=== PATIENT | male | born 1965 | race Caucasian/White ===

== ENCOUNTER 2017-11-01 11:17 | Inpatient (IN) | payer OTHER ==
[2017-11-01 13:39] VITALS: BMI 30.4
--- NOTE | 2017-11-01 16:43 | HP ---
COWS - Scale Resting Pulse: 2= [place] 101-120 Sweatin=Flushed/Facial Moisture Restless Observation: 1= Difficult to Sit Still Pupil Size: 0= Normal to Room Light Bone or Joint Aches: 1= Mild Discomfort Runny Nose/ Eye Tearin= None GI Upset > 30mins: 1= Stomach Cramp Tremor Observation: 1= Tremor Surveyor, Not Seen Yawning Observation: 1= 1-2x During Session Anxiety or Irritability: 2=Irritable/Anxious Goose Flesh Skin: 3=Piloerection (f) COWS Score: 14 Admission [facility] Chief Complaint: withdrawal symptoms Allergies/Adverse Reactions: Allergies Allergy/AdvReac Type Severity Reaction Status Date / Time No Known Allergies Allergy Verified 11/01/17 15:24 History of Present Illness: Patient is a 52 yo male with hx of heroin dependence is here seeking detox. PMHX :GERD, HTN, DM II on oral meds, chronic back pain, anxiety, depression, insomnia. Denies suicidal / homicidal ideation or suicide attempt. Reports left the Wellness program [facility] two months ago, did not like the way that methadone made him feel and started loosing his teeth. Reports currently under probation due to a MVA while under the influence of heroin use. Longest period of sobriety 2 years [id number], reports relapse after the of his mother. Denies hx of seizure or overdose. Reference #: [id number] Others' Prescriptions Patient Name: Isauro Tello Date: 1965 Address: [address] [place] [address] Sex: Male Rx Written Rx Dispensed Drug Quantity Days Supply Prescriber Name 10/21/2017 10/21/2017 alprazolam 2 mg tablet 90 30 Devyn Galvin MD 09/19/2017 09/21/2017 alprazolam 2 mg tablet 90 30 Devyn Galvin MD 08/22/2017 08/23/2017 alprazolam 2 mg tablet 90 30 Devyn Galvin MD 07/24/2017 07/25/2017 alprazolam 2 mg tablet 90 30 Devyn Galvin MD 06/27/2017 06/28/2017 alprazolam 2 mg tablet 90 30 Devyn Galvin MD 05/30/2017 05/31/2017 alprazolam 2 mg tablet 90 30 Devyn Galvin MD 05/02/2017 05/03/2017 alprazolam 2 mg tablet 90 30 Devyn Galvin MD 04/04/2017 04/05/2017 alprazolam 2 mg tablet 90 30 Devyn Galvin MD 03/07/2017 03/07/2017 alprazolam 2 mg tablet 90 30 Devyn Galvin MD 02/05/2017 02/05/2017 alprazolam 2 mg tablet 90 30 Devyn Galvin MD Exam Limitations: No Limitations - Ebola screening Have you traveled outside of the country in the last 21 days: No (N) Have you had contact with anyone from an Ebola affected area: No Have you been sick,other than usual withdrawal symptoms: No Do you have a fever: No - Review of Systems Constitutional: Chills, Diaphoresis, Changes in sleep, Unintentional Wgt. Loss ( 20 lbs over the past month) EENT: reports: Dental Problems ("loosing teeth recently after being on methadone ") Respiratory: reports: No Symptoms reported Cardiac: reports: No Symptoms Reported GI: reports: Nausea, Poor Fluid Intake, Indigestion, Abdominal cramping : reports: No Symptoms Reported Musculoskeletal: reports: Other (hx brojen bellamy and right wrist) Neuro: reports: Tremors, Weakness, Dizziness (when getting up) Hematology: reports: No Symptoms Reported Psychiatric: reports: Orientated x3, Anxious Other Systems: Reviewed and Negative Patient History - Patient Medical History Hx Asthma: No Hx Chronic Obstructive Pulmonary Disease (COPD): No Hx Cancer: No Hx Cardiac Disorders: No Hx Congestive Heart Failure: No Hx Hypertension: Yes Hx Hypercholesterolemia: No Hx Pacemaker: No HX Cerebrovascular Accident: No Hx Seizures: No Hx Dementia: No Hx Diabetes: Yes Hx Gastrointestinal Disorders: Yes (GERD, hx of GI bleed 2015) Hx Liver Disease: No Hx Genitourinary Disorders: No Hx Sexually Transmitted Disorders: No Hx Renal Disease (ESRD): No Hx Thyroid Disease: No Hx Human Immunodeficiency Virus (HIV): No (declines testing) Hx Hepatitis C: No Hx Depression: Yes Hx Suicide Attempt: No Hx Bipolar Disorder: No Hx Schizophrenia: No - Patient Surgical History Past Surgical History: No Hx Neurologic Surgery: No Hx Cataract Extraction: No Hx Cardiac Surgery: No Hx Lung Surgery: No Hx Breast Surgery: No Hx Breast Biopsy: No Hx Abdominal Surgery: No Hx Appendectomy: No Hx Cholecystectomy: No Hx Genitourinary Surgery: No Hx Section: No Hx Orthopedic Surgery: No Other Surgical History: RIGHT LOWER LEG SURGERY FEMUR Anesthesia Reaction: No - PPD History Previous Implant?: No Documented Results: Negative w/o proof Implanted On Prior [facility] Admission?: No Results: hx +PPD PPD to be Administered?: No - Reproductive History Patient is a Female of Child Bearing Age (11 -55 yrs old): No - Smoking Cessation Smoking history: Current every day smoker Have you smoked in the past 12 months: Yes Aproximately how many cigarettes per day: 10 Hx Chewing Tobacco Use: No Initiated information on smoking cessation: Yes 'Breaking Loose' booklet given: 11/01/17 - Substance & Tx. History Hx Alcohol Use: Yes Hx Substance Use: Yes Substance Use Type: Heroin - Substances Abused Heroin Route: Inhalation Frequency: Daily Amount used: 100 Age of first use: 29 Date of Last Use: 11/01/17 Family Disease History - Family Disease History Family Disease History: Other: Mother (, fall ) Admission Physical Exam [facility] - Vital Signs Vital Signs: Vital Signs - 24 hr 11/01/17 13:37 Temperature 97 F L Pulse Rate 118 H Respiratory 20 Rate Blood Pressure 152/103 - Physical General Appearance: Yes: Mild Distress, Sweating, Anxious HEENTM: Yes: EOMI, Hearing grossly Normal, Normal ENT Inspection, Normocephalic , Normal Voice, MIKE, Pharynx Normal, Tm's normal Respiratory: Yes: Chest Non-Tender, Lungs Clear, Normal Breath Sounds, No Respiratory Distress, No Accessory Muscle Use Neck: Yes: No masses,lesions,Nodules, Trachea in good position Breast: Yes: Breast Exam Deferred Cardiology: Yes: Regular Rhythm, Regular Rate Abdominal: Yes: Normal Bowel Sounds, Non Tender, Flat, Soft Genitourinary: Yes: Within Normal Limits Back: Yes: Normal Inspection Musculoskeletal: Yes: full range of Motion, Gait Steady, Pelvis Stable, Back pain Extremities: Yes: Normal Capillary Refill, Normal Inspection, Normal Range of Motion, Non-Tender Neurological: Yes: tow driver II-XII NML intact, Fully Oriented, Alert, Motor Strength 5/5, Normal Mood/Affect Integumentary: Yes: Normal Color, Warm, Diaphoresis Lymphatic: Yes: Within Normal Limits - Diagnostic (1) Opioid dependence with withdrawal Current Visit: Yes Status: Acute (2) Weight loss Current Visit: Yes Status: Acute (3) Anxiety Current Visit: Yes Status: Acute (4) Type 2 diabetes mellitus with hyperglycemia, without long-term current use of insulin Current Visit: Yes Status: Chronic (5) Hypertension Current Visit: Yes Status: Chronic Qualifiers: Hypertension type: essential hypertension Qualified Code(s): I10 - Essential (primary) hypertension (6) Elevated blood pressure reading with diagnosis of hypertension Current Visit: Yes Status: Acute (7) Insomnia Current Visit: Yes Status: Acute Qualifiers: Insomnia type: unspecified Qualified Code(s): G47.00 - Insomnia, unspecified Cleared for Admission S - Detox or Rehab [facility] Level of Care: Medically Managed Detox Regimen/Protocol: Methadone S Breath Alcohol Content Breath Alcohol Content: 0 Urine Drug Screen - Results Drug Screen Negative: No Urine Drug Screen Results: OPI-Opiates, PCP-Phencyclidine, BZO-Benzodiazepines, MTD-Methadone, OXY-Oxycodone
[2017-11-01] MEDS ORDERED: MAGNESIUM CITRATE 300 ML BOTTLE PO PRN (17:02)
[2017-11-01] MEDS ORDERED: NICOTINE POLACRILEX 2 MG GUM BC PRN (17:02)
[2017-11-01] MEDS ORDERED: METHADONE HCL 10 MG TABLET (FOR DETOX USE ONLY) PO ONE ×2 (17:02→23:00)
[2017-11-01] MEDS ORDERED: P-EPHED 60MG/TRIPROLIDI 2.5MG TABLET PO PRN (17:02)
[2017-11-01] MEDS ORDERED: MAGNESIUM HYDROX 2400MG/30ML ORAL SUSPENSION 30 ML CUP PO PRN (17:02)
[2017-11-01] MEDS ORDERED: MENTHOL/PHENOL 1 EACH UD MM PRN (17:02)
[2017-11-01] MEDS ORDERED: LOPERAMIDE HCL 2 MG CAPSULE PO PRN (17:02)
[2017-11-01] MEDS ORDERED: guaiFENesin/D-METHORPHAN HB 10 ML UNIT-DOSE CUPS PO PRN (17:02)
[2017-11-01] MEDS ORDERED: ACETAMINOPHEN 325 MG TABLET (FP) PO PRN (17:02)
[2017-11-01] MEDS ORDERED: MAG HYDROX/AL HYDROX/SIMETH 30 ML UNIT-DOSE CUP PO PRN (17:02)
[2017-11-01] MEDS ORDERED: METHADONE HCL 10 MG TABLET (FOR DETOX USE ONLY) ONE (19:21)
[2017-11-01] MEDS: diazePAM 5 MG TABLET PO PRN (19:22)
[2017-11-01 21:36] LABS: URINE APPEARANCE CLEAR; URINE BILIRUBIN NEGATIVE (<2.0 mg/dL); URINE COLOR YELLOW; URINE GLUCOSE (UA) 3+ (NEGATIVE); URINE KETONE TRACE (NEGATIVE); URINE LEUK ESTERASE NEGATIVE (NEGATIVE); URINE NITRITE NEGATIVE (NEGATIVE); URINE PROTEIN NEGATIVE (NEGATIVE); URINE UROBILINOGEN NEGATIVE mg/dL (0.2-1.0)
[2017-11-01] MEDS: THIAMINE HCL 100 MG TABLET (FP) PO SCH (22:32)
[2017-11-01] MEDS: BACITRACIN 0.9 GM PACKET TP SCH (22:32)
[2017-11-01] MEDS: MELATONIN 5 MG TABLETS PO PRN (22:39)
[2017-11-02] MEDS ORDERED: INSULIN (NOVOLOG) ASPART 100 UNITS/ML 10ML VIAL ONE ×2 (07:32→16:45)
[2017-11-02] MEDS: GLIMEPIRIDE 1 MG TABLET (FP) PO SCH ×2 (07:58→17:18)
[2017-11-02] MEDS: INSULIN SLIDING SCALE (NOVOLOG) 1 VIAL SQ SCH ×2 (07:59→17:18)
[2017-11-02] MEDS ORDERED: METHADONE HCL 10 MG TABLET (FOR DETOX USE ONLY) PO ONE (10:00)
[2017-11-02 10:26] LABS: HEMATOCRIT 30.3 % (35.4-49); HEMOGLOBIN 8.9 GM/dL (11.7-16.9); MCHC 29.5 g/dl (32.0-35.9); MEAN PLT VOLUME 9.1 fl (7.5-11.1); PLATELET COUNT 182 K/MM3 (134-434); RBC 5.13 M/mm3 (4.00-5.60); RDW 21.9 % (11.9-15.9); WHITE BLOOD COUNT 5.3 K/mm3 (4.0-10.0)
[2017-11-02 10:31] LABS: MCH 17.4 pg (25.7-33.7)
[2017-11-02] MEDS: BACITRACIN 0.9 GM PACKET TP SCH ×2 (10:31→22:39)
[2017-11-02] MEDS: PRENATAL VITAMINS W/ FOLIC ACID TABLET (FP) PO SCH (10:31)
[2017-11-02] MEDS: NICOTINE 14 MG/24 HOURS TOPICAL PATCH TD SCH (10:31)
[2017-11-02] MEDS: HYDROCHLOROTHIAZIDE 25 MG TABLET (FP) PO SCH (10:31)
[2017-11-02 10:32] LABS: ADD RBC MORPHOLOGY YES
[2017-11-02 10:42] LABS: CHLORIDE 99 mmol/L (98-107); SODIUM 136 mmol/L (136-145)
[2017-11-02] MEDS: diazePAM 5 MG TABLET PO PRN ×4 (10:42→22:39)
[2017-11-02 10:49] LABS: ANION GAP 6 (8-16); BLOOD UREA NITROGEN 20 mg/dL (7-18); CO2 31 mmol/L (21-32); CREATININE 0.8 mg/dL (0.7-1.3); GLUCOSE,RANDOM 245 mg/dL (74-106)
[2017-11-02 10:50] LABS: ALBUMIN 3.4 g/dl (3.4-5.0); ALK PHOS 72 U/L (45-117); BILIRUBIN,TOTAL 0.2 mg/dL (0.2-1.0); CALCIUM 8.5 mg/dL (8.5-10.1); SGOT/AST 39 U/L (15-37); SGPT/ALT 80 U/L (12-78); TOT PROT 6.7 g/dl (6.4-8.2)
[2017-11-02] MEDS: PANTOPRAZOLE 40 MG TABLET (FP) PO SCH (11:13)
[2017-11-02] MEDS: IBUPROFEN 400 MG TABLET (FP) PO PRN (11:14)
--- NOTE | 2017-11-02 11:30 | CONSULT ---
[facility] Psychiatric Consult - Data Date of interview: 11/02/17 Admission source: [facility] Identifying data: Pt. is a 52 year old male, , father of two, unemployed , has his own place at his father's property. This is patient's first admisson to [facility]. Pt. admitted to detox for opioid dependence. Substance Abuse History: Folllowing information confirmed with Mr. Tello: Smoking Cessation. Smoking history: Current every day smoker. Have you smoked in the past 12 months: Yes. Aproximately how many cigarettes per day: 10. Hx Chewing Tobacco Use: No. Initiated information on smoking cessation: Yes. ' Breaking Loose' booklet given: 11/01/17. - Substance & Tx. History. Hx Alcohol Use: Yes. Hx Substance Use: Yes. Substance Use Type: Heroin. - Substances Abused. Heroin. Route: Inhalation. Frequency: Daily. Amount used: 100. Age of first use: 29. Date of Last Use: 11/01/17 Medical History: Hypertension, Diabetes Psychiatric History: Pt. denies h/o psychiatric hospitaliztion, outpatient care and sucide attempts. Physical/Sexual Abuse/Trauma History: Denies. Mental Status Exam - Mental Status Exam Alert and Oriented to: Time, Place, Person Cognitive Function: Good Patient Appearance: Well Groomed Mood: Hopeful Affect: Mood Congruent Patient Behavior: Appropriate, Cooperative Speech Pattern: Clear, Appropriate Voice Loudness: Normal Thought Process: Goal Oriented Thought Disorder: Not Present Hallucinations: Denies Suicidal Ideation: Denies Homicidal Ideation: Denies Insight/Judgement: Poor Sleep: Fair Appetite: Fair Muscle strength/Tone: Normal Gait/Station: Normal Psychiatric Findings - Problem List ([place] 1, 2,3) (1) Opioid dependence with withdrawal Current Visit: Yes Status: Acute (2) Substance induced mood disorder Current Visit: Yes Status: Acute - Initial Treatment Plan Initial Treatment Plan: Psychoeducation provided. Detoxification provided. Observation.
[2017-11-02 12:31] LABS: ANISOCYTOSIS 3+; OVALOCYTE 1+
--- NOTE | 2017-11-02 15:11 | PN ---
[facility] COWS - Scale Resting Pulse: 1= [place] 81-100 Sweatin= Chills/Flushing Restless Observation: 3= Extraneous Movement Pupil Size: 1= Pupils >than Normal Bone or Joint Aches: 2= Severe Diffuse Aches Runny Nose/ Eye Tearin= Runny Nose/Eyes GI Upset > 30mins: 2= Nausea/Diarrhea Tremor Observation of Outstretched Hands: 2= Slight Tremor Visible Yawning Observation: 1= 1-2x During Session Anxiety or Irritability: 2=Irritable/Anxious Goose Flesh Skin: 0=Smooth Skin COWS Score: 17 S Progress Note (SOAP) Subjective: ALERT,IRRITABLE,ANXIOUS,INTERRUPTED SLEEP,TREMOR,PAIN IN THE BODY AND BACK Objective: 11/02/17 15:09 Vital Signs Temperature 98.1 F 11/02/17 10:58 Pulse Rate 75 11/02/17 10:58 Respiratory Rate 18 11/02/17 10:58 Blood Pressure 140/78 11/02/17 10:58 O2 Sat by Pulse Oximetry (%) EKG NST,NORMAL ECG Laboratory Last Values WBC 5.3 K/mm3 (4.0-10.0) 11/02/17 07:50 RBC 5.13 M/mm3 (4.00-5.60) 11/02/17 07:50 Hgb 8.9 GM/dL (11.7-16.9) L 11/02/17 07:50 Hct 30.3 % (35.4-49) L 11/02/17 07:50 MCV 59.0 fl (80-96) L 11/02/17 07:50 MCH 17.4 pg (25.7-33.7) L 11/02/17 07:50 MCHC 29.5 g/dl (32.0-35.9) L 11/02/17 07:50 RDW 21.9 % (11.9-15.9) H 11/02/17 07:50 Plt Count 182 K/MM3 (134-434) 11/02/17 07:50 MPV 9.1 fl (7.5-11.1) 11/02/17 07:50 Hypochromia 3+ 11/02/17 07:50 Platelet Comment A 11/02/17 07:50 Poikilocytosis 1+ 11/02/17 07:50 Anisocytosis 3+ 11/02/17 07:50 Ovalocytes 1+ 11/02/17 07:50 Sodium 136 mmol/L (136-145) 11/02/17 07:50 Potassium 4.0 mmol/L (3.5-5.1) 11/02/17 07:50 Chloride 99 mmol/L (98-107) 11/02/17 07:50 Carbon Dioxide 31 mmol/L (21-32) 11/02/17 07:50 Anion Gap 6 (8-16) L 11/02/17 07:50 BUN 20 mg/dL (7-18) H 11/02/17 07:50 Creatinine 0.8 mg/dL (0.7-1.3) 11/02/17 07:50 Creat Clearance w eGFR > 60 (>60) 11/02/17 07:50 POC Glucometer 386 UNITS (80-120) 11/01/17 16:26 Random Glucose 245 mg/dL (74-106) H 11/02/17 07:50 Calcium 8.5 mg/dL (8.5-10.1) 11/02/17 07:50 Total Bilirubin 0.2 mg/dL (0.2-1.0) 11/02/17 07:50 AST 39 U/L (15-37) H 11/02/17 07:50 ALT 80 U/L (12-78) H 11/02/17 07:50 Alkaline Phosphatase 72 U/L (45-117) 11/02/17 07:50 Total Protein 6.7 g/dl (6.4-8.2) 11/02/17 07:50 Albumin 3.4 g/dl (3.4-5.0) 11/02/17 07:50 Urine Color Yellow 11/01/17 18:40 Urine Appearance Clear 11/01/17 18:40 Urine pH 5.0 (5.0-8.0) 11/01/17 18:40 Ur Specific [place] 1.036 (1.001-1.035) H 11/01/17 18:40 Urine Protein Negative (NEGATIVE) 11/01/17 18:40 Urine Glucose (UA) 3+ (NEGATIVE) H 11/01/17 18:40 Urine Ketones Trace (NEGATIVE) H 11/01/17 18:40 Urine Blood Negative (NEGATIVE) 11/01/17 18:40 Urine Nitrite Negative (NEGATIVE) 11/01/17 18:40 Urine Bilirubin Negative (<2.0 mg/dL) 11/01/17 18:40 Urine Urobilinogen Negative mg/dL (0.2-1.0) 11/01/17 18:40 Ur Leukocyte Esterase Negative (NEGATIVE) 11/01/17 18:40 RPR Titer Nonreactive (NONREACTIVE) 11/02/17 07:50 Assessment: 11/02/17 15:11 WITHDRAWAL SYMPTOM Plan: CONTINUE DETOX
[2017-11-02] MEDS: MELATONIN 5 MG TABLETS PO PRN (22:39)
[2017-11-02] MEDS: THIAMINE HCL 100 MG TABLET (FP) PO SCH (22:39)
[2017-11-03] MEDS: diazePAM 5 MG TABLET PO PRN ×4 (05:47→22:12)
[2017-11-03] MEDS: INSULIN SLIDING SCALE (NOVOLOG) 1 VIAL SQ SCH ×2 (07:29→17:47)
[2017-11-03] MEDS: GLIMEPIRIDE 1 MG TABLET (FP) PO SCH ×2 (07:29→17:45)
[2017-11-03] MEDS: NICOTINE 14 MG/24 HOURS TOPICAL PATCH TD SCH (09:49)
[2017-11-03] MEDS: BACITRACIN 0.9 GM PACKET TP SCH ×2 (09:50→22:12)
[2017-11-03] MEDS: HYDROCHLOROTHIAZIDE 25 MG TABLET (FP) PO SCH (09:50)
[2017-11-03] MEDS: PANTOPRAZOLE 40 MG TABLET (FP) PO SCH (09:50)
[2017-11-03] MEDS: PRENATAL VITAMINS W/ FOLIC ACID TABLET (FP) PO SCH (09:50)
[2017-11-03] MEDS ORDERED: METHADONE HCL 5 MG TABLET (FOR DETOX USE ONLY) PO ONE (10:00)
[2017-11-03] MEDS: IBUPROFEN 400 MG TABLET (FP) PO PRN ×2 (12:18→22:14)
--- NOTE | 2017-11-03 15:10 | PN ---
S COWS - Scale Resting Pulse: 0= [place] 80 or Below Sweatin= Chills/Flushing Restless Observation: 1= Difficult to Sit Still Pupil Size: 2= Moderately Dilated Bone or Joint Aches: 2= Severe Diffuse Aches Runny Nose/ Eye Tearin= Nasal Congestion GI Upset > 30mins: 2= Nausea/Diarrhea Tremor Observation of Outstretched Hands: 2= Slight Tremor Visible Yawning Observation: 2= >3x During Session Anxiety or Irritability: 2=Irritable/Anxious Goose Flesh Skin: 0=Smooth Skin COWS Score: 15 S Progress Note (SOAP) Subjective: joint aches restlessness anxiety sweat tremor gi distress Objective: 11/03/17 15:08 Vital Signs Temperature 97.9 F 11/03/17 15:06 Pulse Rate 88 11/03/17 15:06 Respiratory Rate 20 11/03/17 15:06 Blood Pressure 151/92 11/03/17 15:06 O2 Sat by Pulse Oximetry (%) Laboratory Last Values WBC 5.3 K/mm3 (4.0-10.0) 11/02/17 07:50 RBC 5.13 M/mm3 (4.00-5.60) 11/02/17 07:50 Hgb 8.9 GM/dL (11.7-16.9) L 11/02/17 07:50 Hct 30.3 % (35.4-49) L 11/02/17 07:50 MCV 59.0 fl (80-96) L 11/02/17 07:50 MCH 17.4 pg (25.7-33.7) L 11/02/17 07:50 MCHC 29.5 g/dl (32.0-35.9) L 11/02/17 07:50 RDW 21.9 % (11.9-15.9) H 11/02/17 07:50 Plt Count 182 K/MM3 (134-434) 11/02/17 07:50 MPV 9.1 fl (7.5-11.1) 11/02/17 07:50 Hypochromia 3+ 11/02/17 07:50 Platelet Comment A 11/02/17 07:50 Poikilocytosis 1+ 11/02/17 07:50 Anisocytosis 3+ 11/02/17 07:50 Ovalocytes 1+ 11/02/17 07:50 Sodium 136 mmol/L (136-145) 11/02/17 07:50 Potassium 4.0 mmol/L (3.5-5.1) 11/02/17 07:50 Chloride 99 mmol/L (98-107) 11/02/17 07:50 Carbon Dioxide 31 mmol/L (21-32) 11/02/17 07:50 Anion Gap 6 (8-16) L 11/02/17 07:50 BUN 20 mg/dL (7-18) H 11/02/17 07:50 Creatinine 0.8 mg/dL (0.7-1.3) 11/02/17 07:50 Creat Clearance w eGFR > 60 (>60) 11/02/17 07:50 POC Glucometer 371 UNITS (80-120) 11/02/17 16:16 Random Glucose 245 mg/dL (74-106) H 11/02/17 07:50 Calcium 8.5 mg/dL (8.5-10.1) 11/02/17 07:50 Total Bilirubin 0.2 mg/dL (0.2-1.0) 11/02/17 07:50 AST 39 U/L (15-37) H 11/02/17 07:50 ALT 80 U/L (12-78) H 11/02/17 07:50 Alkaline Phosphatase 72 U/L (45-117) 11/02/17 07:50 Total Protein 6.7 g/dl (6.4-8.2) 11/02/17 07:50 Albumin 3.4 g/dl (3.4-5.0) 11/02/17 07:50 Urine Color Yellow 11/01/17 18:40 Urine Appearance Clear 11/01/17 18:40 Urine pH 5.0 (5.0-8.0) 11/01/17 18:40 Ur Specific [place] 1.036 (1.001-1.035) H 11/01/17 18:40 Urine Protein Negative (NEGATIVE) 11/01/17 18:40 Urine Glucose (UA) 3+ (NEGATIVE) H 11/01/17 18:40 Urine Ketones Trace (NEGATIVE) H 11/01/17 18:40 Urine Blood Negative (NEGATIVE) 11/01/17 18:40 Urine Nitrite Negative (NEGATIVE) 11/01/17 18:40 Urine Bilirubin Negative (<2.0 mg/dL) 11/01/17 18:40 Urine Urobilinogen Negative mg/dL (0.2-1.0) 11/01/17 18:40 Ur Leukocyte Esterase Negative (NEGATIVE) 11/01/17 18:40 RPR Titer Nonreactive (NONREACTIVE) 11/02/17 07:50 lab noted Assessment: 11/03/17 15:10 withdrawal sx Plan: continue detox
[2017-11-03] MEDS ORDERED: INSULIN (NOVOLOG) ASPART 100 UNITS/ML 10ML VIAL ONE (16:56)
[2017-11-03] MEDS: hydrOXYzine PAMOATE 50 MG CAPSULE (FP) PO PRN (18:38)
[2017-11-03] MEDS ORDERED: LISINOPRIL 10 MG TABLET (FP) PO SCH (22:00)
[2017-11-03] MEDS: THIAMINE HCL 100 MG TABLET (FP) PO SCH (22:12)
[2017-11-03] MEDS: LISINOPRIL 10 MG TABLET (FP) PO SCH (22:12)
[2017-11-03] MEDS: MELATONIN 5 MG TABLETS PO PRN (22:13)
[2017-11-04] MEDS: diazePAM 5 MG TABLET PO PRN ×3 (05:19→14:26)
[2017-11-04] MEDS: GLIMEPIRIDE 1 MG TABLET (FP) PO SCH ×2 (07:17→17:32)
[2017-11-04] MEDS ORDERED: INSULIN (NOVOLOG) ASPART 100 UNITS/ML 10ML VIAL ONE ×2 (07:57→17:30)
[2017-11-04] MEDS: INSULIN SLIDING SCALE (NOVOLOG) 1 VIAL SQ SCH ×2 (08:16→17:33)
[2017-11-04] MEDS ORDERED: METHADONE HCL 5 MG TABLET (FOR DETOX USE ONLY) PO ONE (10:00)
[2017-11-04] MEDS: PANTOPRAZOLE 40 MG TABLET (FP) PO SCH (10:19)
[2017-11-04] MEDS: LISINOPRIL 10 MG TABLET (FP) PO SCH ×2 (10:19→22:09)
[2017-11-04] MEDS: BACITRACIN 0.9 GM PACKET TP SCH ×2 (10:20→22:38)
[2017-11-04] MEDS: PRENATAL VITAMINS W/ FOLIC ACID TABLET (FP) PO SCH (10:20)
[2017-11-04] MEDS: HYDROCHLOROTHIAZIDE 25 MG TABLET (FP) PO SCH (10:22)
[2017-11-04] MEDS: NICOTINE 14 MG/24 HOURS TOPICAL PATCH TD SCH (10:22)
--- NOTE | 2017-11-04 11:37 | PN ---
[facility] Progress Note (SOAP) Subjective: Anxious Sleep disturbance Shakes Objective: 11/04/17 11:35 A & O x 3 Vital Signs Temperature 97.7 F 11/04/17 10:16 Pulse Rate 81 11/04/17 10:16 Respiratory Rate 20 11/04/17 10:16 Blood Pressure 163/108 11/04/17 10:16 O2 Sat by Pulse Oximetry (%) Denies Chest pains, Headaches Assessment: 11/04/17 11:36 Withdrawal sx Plan: continue detox Continue hydration Monitor Bp
--- NOTE | 2017-11-04 12:43 | EKG ---
Test Reason : Blood Pressure : / mmHG Vent. Rate : 093 BPM Atrial Rate : 093 BPM P-R Int : 172 ms QRS Dur : 102 ms QT Int : 344 ms P-R-T Axes : 046 -05 043 degrees QTc Int : 427 ms NORMAL SINUS RHYTHM NORMAL ECG NO PREVIOUS ECGS AVAILABLE Confirmed by MESSI CLIFTON MD ([id number]) on 11/04/2017 12:43:09 PM Referred By: Confirmed By:MESSI CLIFTON MD
[2017-11-04] MEDS: hydrOXYzine PAMOATE 50 MG CAPSULE (FP) PO PRN ×3 (14:26→22:55)
[2017-11-04] MEDS: IBUPROFEN 400 MG TABLET (FP) PO PRN (14:26)
[2017-11-04] MEDS: THIAMINE HCL 100 MG TABLET (FP) PO SCH (22:09)
[2017-11-04] MEDS: MELATONIN 5 MG TABLETS PO PRN (22:10)
[2017-11-05] MEDS: hydrOXYzine PAMOATE 50 MG CAPSULE (FP) PO PRN ×2 (05:33→09:33)
[2017-11-05 06:36] VITALS: TEMP 96.8
[2017-11-05 07:16] VITALS: BP 143/72; PULSE 74
[2017-11-05] MEDS: GLIMEPIRIDE 1 MG TABLET (FP) PO SCH (07:21)
[2017-11-05] MEDS: INSULIN SLIDING SCALE (NOVOLOG) 1 VIAL SQ SCH (08:50)
[2017-11-05] MEDS ORDERED: INSULIN (NOVOLOG) ASPART 100 UNITS/ML 10ML VIAL ONE (09:30)
[2017-11-05] MEDS: HYDROCHLOROTHIAZIDE 25 MG TABLET (FP) PO SCH (09:33)
[2017-11-05] MEDS: LISINOPRIL 10 MG TABLET (FP) PO SCH (09:33)
[2017-11-05] MEDS: PRENATAL VITAMINS W/ FOLIC ACID TABLET (FP) PO SCH (09:33)
[2017-11-05] MEDS: IBUPROFEN 400 MG TABLET (FP) PO PRN (09:33)
[2017-11-05] MEDS: PANTOPRAZOLE 40 MG TABLET (FP) PO SCH (09:33)
[2017-11-05] MEDS ORDERED: METHADONE HCL 10 MG TABLET (FOR DETOX USE ONLY) PO ONE (10:00)
--- NOTE | 2017-11-05 10:00 | DS ---
[facility] Detox Discharge Summary Admission Date: 11/01/17 Discharge Date: 11/05/17 - History Present History: Opioid Dependence Additional Comments: 52 years old admitted for opioid detox patient wants continue valium prn health teaching on risks of opioid combined with benzo patient reports his physician x 2-3 years prescribed xanax and valium and klonopin for the past 2-3 years patient insists to terminate the opioid detox regimen patient wants to leave the detox facility and return to his physician for benzo patient stated that he has abdominal pain x 2-3 years the xanax and valium are the treatment regimen health teaching on addiction, hypertension, diabetes, dietary regimen and benefit of healthy life style patient is alert oriented x 3 coherent steady gait, no acute distress denies suicidal denies homocidal no self destructive behavior strong recommend bp control and sugar control - Physical Exam Results Vital Signs: Vital Signs Temperature 96.8 F L 11/05/17 06:00 Pulse Rate 74 11/05/17 07:15 Respiratory Rate 18 11/05/17 07:15 Blood Pressure 143/72 11/05/17 07:15 O2 Sat by Pulse Oximetry (%) Pertinent Admission Physical Exam Findings: withdrawal sx Vital Signs Temperature 96.8 F L 11/05/17 06:00 Pulse Rate 74 11/05/17 07:15 Respiratory Rate 18 11/05/17 07:15 Blood Pressure 143/72 11/05/17 07:15 O2 Sat by Pulse Oximetry (%) Laboratory Last Values WBC 5.3 K/mm3 (4.0-10.0) 11/02/17 07:50 RBC 5.13 M/mm3 (4.00-5.60) 11/02/17 07:50 Hgb 8.9 GM/dL (11.7-16.9) L 11/02/17 07:50 Hct 30.3 % (35.4-49) L 11/02/17 07:50 MCV 59.0 fl (80-96) L 11/02/17 07:50 MCH 17.4 pg (25.7-33.7) L 11/02/17 07:50 MCHC 29.5 g/dl (32.0-35.9) L 11/02/17 07:50 RDW 21.9 % (11.9-15.9) H 11/02/17 07:50 Plt Count 182 K/MM3 (134-434) 11/02/17 07:50 MPV 9.1 fl (7.5-11.1) 11/02/17 07:50 Hypochromia 3+ 11/02/17 07:50 Platelet Comment A 11/02/17 07:50 Poikilocytosis 1+ 11/02/17 07:50 Anisocytosis 3+ 11/02/17 07:50 Ovalocytes 1+ 11/02/17 07:50 Sodium 136 mmol/L (136-145) 11/02/17 07:50 Potassium 4.0 mmol/L (3.5-5.1) 11/02/17 07:50 Chloride 99 mmol/L (98-107) 11/02/17 07:50 Carbon Dioxide 31 mmol/L (21-32) 11/02/17 07:50 Anion Gap 6 (8-16) L 11/02/17 07:50 BUN 20 mg/dL (7-18) H 11/02/17 07:50 Creatinine 0.8 mg/dL (0.7-1.3) 11/02/17 07:50 Creat Clearance w eGFR > 60 (>60) 11/02/17 07:50 POC Glucometer 309 UNITS (80-120) 11/04/17 05:14 Random Glucose 245 mg/dL (74-106) H 11/02/17 07:50 Calcium 8.5 mg/dL (8.5-10.1) 11/02/17 07:50 Total Bilirubin 0.2 mg/dL (0.2-1.0) 11/02/17 07:50 AST 39 U/L (15-37) H 11/02/17 07:50 ALT 80 U/L (12-78) H 11/02/17 07:50 Alkaline Phosphatase 72 U/L (45-117) 11/02/17 07:50 Total Protein 6.7 g/dl (6.4-8.2) 11/02/17 07:50 Albumin 3.4 g/dl (3.4-5.0) 11/02/17 07:50 Urine Color Yellow 11/01/17 18:40 Urine Appearance Clear 11/01/17 18:40 Urine pH 5.0 (5.0-8.0) 11/01/17 18:40 Ur Specific [place] 1.036 (1.001-1.035) H 11/01/17 18:40 Urine Protein Negative (NEGATIVE) 11/01/17 18:40 Urine Glucose (UA) 3+ (NEGATIVE) H 11/01/17 18:40 Urine Ketones Trace (NEGATIVE) H 11/01/17 18:40 Urine Blood Negative (NEGATIVE) 11/01/17 18:40 Urine Nitrite Negative (NEGATIVE) 11/01/17 18:40 Urine Bilirubin Negative (<2.0 mg/dL) 11/01/17 18:40 Urine Urobilinogen Negative mg/dL (0.2-1.0) 11/01/17 18:40 Ur Leukocyte Esterase Negative (NEGATIVE) 11/01/17 18:40 RPR Titer Nonreactive (NONREACTIVE) 11/02/17 07:50 lab noted - Treatment Hospital Course: Detox Protocol Followed, Responded well Patient has Accepted a Rehab Referral to: [facility] out patient - Medication Discharge Medications: Ambulatory Orders Omeprazole 20 mg PO DAILY 11/01/17 Glimepiride 1 mg PO BID #30 tablet 11/05/17 Hydrochlorothiazide 1 mg PO DAILY #30 tablet 11/05/17 Lisinopril 10 mg PO DAILY #30 tablet 11/05/17 metFORMIN HCL [Glucophage -] 500 mg PO DAILY #30 tablet 11/05/17 - Diagnosis (1) GERD (gastroesophageal reflux disease) Current Visit: Yes Status: Chronic Qualifiers: Esophagitis presence: without esophagitis Qualified Code(s): K21.9 - Gastro -esophageal reflux disease without esophagitis (2) Opioid dependence with withdrawal Current Visit: Yes Status: Acute (3) Hypertension Current Visit: Yes Status: Chronic Qualifiers: Hypertension type: essential hypertension Qualified Code(s): I10 - Essential (primary) hypertension (4) Type 2 diabetes mellitus with hyperglycemia, without long-term current use of insulin Current Visit: Yes Status: Chronic - AMA Did Patient Leave Against Medical Advice: Yes
[2017-11-06] MEDS ORDERED: METHADONE HCL 5 MG TABLET (FOR DETOX USE ONLY) PO ONE (06:00)
== END 2017-11-05 09:40 | disposition left against medical advice (07) | DRG 770 ==
LOC: YASAS 11:17 → Y6N 17:37
PROVIDERS: ADMIT Internal Medicine; ATTEND Internal Medicine
PROC: HZ2ZZZZ Detoxification Services for Substance Abuse Treatment (ICD-10-PCS; principal; 2017-11-01)
DX: F11.23 Opioid dependence with withdrawal (principal); F41.9 Anxiety disorder, unspecified; F32.9 Major depressive disorder, single episode, unspecified; F19.24 Other psychoactive substance dependence with psychoactive substance-induced mood disorder; I10 Essential (primary) hypertension; E11.9 Type 2 diabetes mellitus without complications; Z79.84 Long term (current) use of oral hypoglycemic drugs; G47.00 Insomnia, unspecified; K21.9 Gastro-esophageal reflux disease without esophagitis; M54.5 Low back pain; G89.29 Other chronic pain
CPT/HCPCS: 36415; 71046-TC-FY; 80053; 81003; 82962; 85027; 86593; 93005; 93010

== ENCOUNTER 2018-12-30 13:12 | Inpatient (IN) | payer OTHER ==
[2018-12-30 15:00] VITALS: BMI 26.9
--- NOTE | 2018-12-30 18:04 | HP ---
"COWS - Scale Resting Pulse: 1= AL 81-100 Sweatin= Chills/Flushing Restless Observation: 0= Sits Still Pupil Size: 0= Normal to Room Light Bone or Joint Aches: 4=Acute Joint/Muscle Pain Runny Nose/ Eye Tearin= None GI Upset > 30mins: 1= Stomach Cramp Tremor Observation: 0= None Yawning Observation: 0= None Anxiety or Irritability: 2=Irritable/Anxious Goose Flesh Skin: 0=Smooth Skin COWS Score: 9 CIWA Score Nausea/Vomitin-No Nausea/No Vomiting Muscle Tremors: None Anxiety: 2 Agitation: 0-Normal Activity Paroxysmal Sweats: 2 Orientation: 0-Oriented Tacttile Disturbances: 0-None Auditory Disturbances: 0-None Visual Disturbances: 3-Moderate Sensitivity Headache: 5-Severe CIWA-Ar Total Score: 12 - Admission Criteria [facility]AS Guidelines: Admission for Medically Managed Detox: Requires at least one of the followin. CIWA greater than 12 2. Seizures within the past 24 hours 3. Delirium tremens within the past 24 hours 4. Hallucinations within the past 24 hours 5. Acute intervention needed for co occurring medical disorder 6. Acute intervention needed for co occurring psychiatric disorder 7. Severe withdrawal that cannot be handled at a lower level of care (continued vomiting, continued diarrhea, abnormal vital signs) requiring intravenous medication and/or fluids 8. Admission ROS [facility] Allergies/Adverse Reactions: Allergies Allergy/AdvReac Type Severity Reaction Status Date / Time No Known Allergies Allergy Verified 12/30/18 14:44 History of Present Illness: pt here requesting detox from heroin and benzo use , reports heroin since age 27 , current daily use 5 bags/ day via inhalation denies ivdu , latest use yesterday , current symptoms as above . Pt is poor historian 2/2 intoxication , drowsiness, awakened by verbal stimuli , falls asleep frequently during interview . benzo : 5 mg/day , no rx , denies w/d seizures . tobacco : 1 ppd etoh : denies PMHX:GERD, HTN, DM II on oral meds, chronic back pain, anxiety, depression, insomnia. Denies suicidal / homicidal ideation or suicide attempt This report was requested by: Chante Caballero | Reference #: [id number] Others' Prescriptions Patient Name: Isauro Tello Date: 1965 Address: [address] [place] [id number] Sex: Male Rx Written Rx Dispensed Drug Quantity Days Supply Prescriber Name 12/23/2018 12/23/2018 alprazolam 2 mg tablet 90 30 Devyn Galvin MD 12/11/2018 12/12/2018 acetaminophen-cod #3 tablet 10 2 Tobin Ritchie) 11/20/2018 11/20/2018 alprazolam 2 mg tablet 90 30 Devyn Galvin MD 10/23/2018 10/23/2018 alprazolam 2 mg tablet 90 30 Devyn Galvin MD 09/23/2018 09/23/2018 alprazolam 2 mg tablet 90 30 Devyn Galvin MD 08/12/2018 08/12/2018 alprazolam 2 mg tablet 90 30 Devyn Galvin MD 07/17/2018 07/18/2018 oxycodone-acetaminophen 5-325 mg tab 10 2 Tobin Ritchie) 06/10/2018 06/10/2018 alprazolam 2 mg tablet 90 30 Devyn Galvin MD 04/29/2018 04/30/2018 alprazolam 2 mg tablet 90 30 Devyn Galvin MD 03/25/2018 04/02/2018 alprazolam 2 mg tablet 90 30 Devyn Galvin MD 03/18/2018 03/21/2018 tramadol hcl 50 mg tablet 5 5 Barbara Minaya MD 01/20/2018 01/20/2018 oxycodone-acetaminophen 10-325 mg tablet 14 7 Josiah Gallegos MD 01/20/2018 01/20/2018 alprazolam 2 mg tablet 90 30 Josiah Gallegos MD Exam Limitations: Clinical Condition, Intoxication - Ebola screening Have you traveled outside of the country in the last 21 days: No Have you had contact with anyone from an Ebola affected area: No - Review of Systems Constitutional: See HPI EENT: reports: See HPI Respiratory: reports: No Symptoms reported Cardiac: reports: No Symptoms Reported GI: reports: See HPI : reports: No Symptoms Reported Musculoskeletal: reports: No Symptoms Reported Integumentary: reports: No Symptoms Reported Neuro: reports: See HPI, Headache, Other (drowsiness) Endocrine: reports: See HPI Psychiatric: reports: Disorientated Patient History - Patient Medical History Hx Asthma: No Hx Chronic Obstructive Pulmonary Disease (COPD): No Hx Cancer: No Hx Cardiac Disorders: No Hx Congestive Heart Failure: No Hx Hypertension: Yes Hx Hypercholesterolemia: No Hx Pacemaker: No HX Cerebrovascular Accident: No Hx Seizures: No Hx Dementia: No Hx Diabetes: Yes Hx Gastrointestinal Disorders: Yes (GERD, hx of GI bleed 2016) Hx Liver Disease: No Hx Genitourinary Disorders: No Hx Sexually Transmitted Disorders: No Hx Renal Disease (ESRD): No Hx Thyroid Disease: No Hx Human Immunodeficiency Virus (HIV): No (declines testing) Hx Hepatitis C: No Hx Depression: Yes Hx Suicide Attempt: No Hx Bipolar Disorder: No Hx Schizophrenia: No - Patient Surgical History Past Surgical History: No Hx Neurologic Surgery: No Hx Cataract Extraction: No Hx Cardiac Surgery: No Hx Lung Surgery: No Hx Breast Surgery: No Hx Breast Biopsy: No Hx Abdominal Surgery: No Hx Appendectomy: No Hx Cholecystectomy: No Hx Genitourinary Surgery: No Hx Section: No Hx Orthopedic Surgery: No Other Surgical History: RIGHT LOWER LEG SURGERY FEMUR Anesthesia Reaction: No - PPD History Results: hx +PPD - Smoking Cessation Smoking history: Current every day smoker Have you smoked in the past 12 months: Yes Aproximately how many cigarettes per day: 10 Hx Chewing Tobacco Use: No Initiated information on smoking cessation: No - Substances abused Heroin Substance route: Inhalation Frequency: 3-6 times per week Amount used: 6bags Age of first use: 26 Date of last use: 12/28/18 Alprazolam (Xanax) Substance route: Oral Frequency: Daily Amount used: 10mg Age of first use: 52 Date of last use: 12/28/18 Family Disease History - Family Disease History Family History: Unable to Obtain (2/2 pt drowsiness) Family Disease History: Other: Mother (, fall ) Admission Physical Exam [facility] - Vital Signs Vital Signs: Vital Signs - 24 hr 12/30/18 14:42 Temperature 98.9 F Pulse Rate 87 Respiratory 18 Rate Blood Pressure 158/99 - Physical General Appearance: Yes: Mild Distress, Other (drowsy , lethargic , awakened by verbal stimuli) HEENTM: Yes: EOMI, Hearing grossly Normal, Normocephalic, Normal Voice, Other ( missing teeth) Respiratory: Yes: Chest Non-Tender, Lungs Clear, Normal Breath Sounds, No Respiratory Distress, No Accessory Muscle Use Neck: Yes: No masses,lesions,Nodules, Trachea in good position Cardiology: Yes: Regular Rhythm, Regular Rate, S1, S2 Abdominal: Yes: Non Tender, Soft Musculoskeletal: Yes: Gait Steady Extremities: Yes: Pedal Edema (right le 3+ pitting edema / erythema to mid- calf , pt reports tenderness to palpation , unable to specify length of time edema has been present , vascillates between 2 days and 2 weeks .), Amputation (right middle finger - per pt 2 months ago , with non - comliance w/ abx tx , proximal phalanx 3rd finger w/ edema/ erythma , c/d/ i @ surgical site), Other (left gt toe distal partial amputation ( healed ) pt vague about hx clubbing x 9 fingers) Neurological: Yes: Alert, Motor Strength 5/5, Other (drowsy , falls asleep frequently during interview , arousable by verbal stimuli) Integumentary: Yes: Warm, Erythema (r le from mid - tibia distally), Rash, Pitting Edema (R LE from mid- calf distally), Other (r 3rd finger proximal phalanx edema/ erythema at amputation site) - Addiitonal Findings: report given to resident ED [place] - Diagnostic (1) Opioid dependence with withdrawal Current Visit: Yes Status: Acute (2) Sedative, hypnotic or anxiolytic abuse Current Visit: Yes Status: Acute (3) Nicotine dependence Current Visit: Yes Status: Chronic Qualifiers: Nicotine product type: cigarettes Screened but not Admitted - Documentation of Visit Level of Care Recommended at this Time: ER Evaluation/Care (pt left via ems ) Breathalyzer - Breathalyzer Breathalyzer: 0 Urine Drug Screen - Test Device Lot number: [id number] Expiration date: 09/18/20 - Control Is test valid?: Yes - Results Drug screen NEGATIVE: No Urine drug screen results: MOP-Opiates, BZO-Benzodiazepines Inpatient Rehab Admission - Rehab Decision to Admit Inpatient rehab admission?: No"
--- NOTE | 2018-12-31 02:28 | PN ---
[facility] Progress Note Note: Returned from [facility] ED after being evaluated for sedation, intoxication and elevated blood glucose. [facility] Ed note as follows: Diagnosis at time of Disposition: Anemia, Kidney dysfunction, Hyperglycemia, Cellulitis 12/30/18: Random Glucose = 603. 12/31/18 00:45 Repeat FS 326 Prescriptions: Cephalexin [Keflex] 500 mg PO QID 5 Days #20 capsule Alert and oriented. H&P completed earlier by Dr. Caballero reviewed. Pupils = 4 mm Nasal congestion, nausea, gross tremors of hands when arms extended, anxious, irritable, increased facial moisture. Admit to [address] [place] [address].
[2018-12-31] MEDS ORDERED: METHOCARBAMOL 500 MG TABLET PO PRN (03:02)
[2018-12-31] MEDS ORDERED: MAG HYDROX/AL HYDROX/SIMETH 30 ML UNIT-DOSE CUP PO PRN (03:02)
[2018-12-31] MEDS ORDERED: BISMUTH SUBSALICYLATE 524 MG/30 ML UD PO PRN (03:02)
[2018-12-31] MEDS ORDERED: guaiFENesin 200 MG/10 ML 10 ML UNIT-DOSE CUPS PO PRN (03:02)
[2018-12-31] MEDS ORDERED: MAGNESIUM CITRATE 300 ML BOTTLE PO PRN (03:02)
[2018-12-31] MEDS ORDERED: chlordiazePOXIDE HCL 25 MG CAPSULE PO ONE (03:02)
[2018-12-31] MEDS ORDERED: MAGNESIUM HYDROX 2400MG/30ML ORAL SUSPENSION 30 ML CUP PO PRN (03:02)
[2018-12-31] MEDS ORDERED: ACETAMINOPHEN 325 MG TABLET (FP) PO PRN ×2 (03:02)
[2018-12-31] MEDS ORDERED: MENTHOL/PHENOL 1 EACH UD MM PRN (03:02)
[2018-12-31] MEDS ORDERED: METHADONE HCL 10 MG TABLET (FOR DETOX USE ONLY) PO ONE ×2 (03:02→10:00)
[2018-12-31] MEDS ORDERED: chlordiazePOXIDE HCL 10 MG CAPSULE PO PRN (03:02)
[2018-12-31] MEDS: chlordiazePOXIDE HCL 25 MG CAPSULE PO SCH ×3 (04:53→23:15)
[2018-12-31] MEDS ORDERED: INSULIN (NOVOLOG) ASPART 100 UNITS/ML 10ML VIAL SQ ONE ×3 (05:00→12:08)
[2018-12-31] MEDS ORDERED: cloNIDine HCL 0.1 MG TABLET PO ONE (06:19)
[2018-12-31] MEDS: metFORMIN HCL 500 MG TABLET (FP) PO SCH (06:30)
[2018-12-31] MEDS: INSULIN SLIDING SCALE (NOVOLOG) 1 VIAL SQ SCH ×4 (06:50→23:18)
[2018-12-31] MEDS: PRENATAL VITAMINS W/ FOLIC ACID TABLET (FP) PO SCH (10:46)
[2018-12-31] MEDS: HYDROCHLOROTHIAZIDE 25 MG TABLET (FP) PO SCH (10:46)
[2018-12-31] MEDS: CEPHALEXIN MONOHYDRATE 500 MG CAPSULE (UD) PO SCH ×4 (10:46→23:15)
[2018-12-31] MEDS: LISINOPRIL 10 MG TABLET (FP) PO SCH (10:50)
[2018-12-31 12:18] LABS: HEMATOCRIT 27.5 % (35.4-49); HEMOGLOBIN 8.5 GM/dL (11.7-16.9); MCH 21.3 pg (25.7-33.7); MCHC 30.9 g/dl (32.0-35.9); MEAN CELL VOLUME 68.8 fl (80-96); MEAN PLT VOLUME 8.8 fl (7.5-11.1); RBC 4.01 M/mm3 (4.00-5.60); RDW 20.1 % (11.9-15.9); WHITE BLOOD COUNT 4.8 K/mm3 (4.0-10.0)
[2018-12-31 12:24] LABS: PLATELET COUNT 185 K/MM3 (134-434)
[2018-12-31] MEDS ORDERED: INSULIN SLIDING SCALE (NOVOLOG) 1 VIAL SQ ONE (12:29)
[2018-12-31 12:54] LABS: ALBUMIN 2.8 g/dl (3.4-5.0); BILIRUBIN,TOTAL 0.2 mg/dL (0.2-1); BLOOD UREA NITROGEN 7.9 mg/dL (7-18); CALCIUM 8.3 mg/dL (8.5-10.1); CREATININE 0.9 mg/dL (0.55-1.3); POTASSIUM 3.8 mmol/L (3.5-5.1); TOT PROT 5.8 g/dl (6.4-8.2)
--- NOTE | 2018-12-31 13:05 | PN ---
[facility] CIWA - CIWA Score Nausea/Vomitin-Mild Nausea/No Vomiting Muscle Tremors: 2 Anxiety: 1-Mildly Anxious Agitation: 1-Slight > Activity Paroxysmal Sweats: 1-Minimal Palms Moist Orientation: 1-Uncertain about Date Tacttile Disturbances: 0-None Auditory Disturbances: 0-None Visual Disturbances: 0-None Headache: 0-None Present CIWA-Ar Total Score: 7 S COWS - Scale Resting Pulse: 1= ND 81-100 Sweatin= Chills/Flushing Restless Observation: 1= Difficult to Sit Still Pupil Size: 0= Normal to Room Light Bone or Joint Aches: 2= Severe Diffuse Aches Runny Nose/ Eye Tearin= Nasal Congestion GI Upset > 30mins: 1= Stomach Cramp Tremor Observation of Outstretched Hands: 4= Gross Tremor/Twitching Yawning Observation: 0= None Anxiety or Irritability: 1=Feels Anxious/Irritable Goose Flesh Skin: 0=Smooth Skin COWS Score: 12 [facility] Progress Note (SOAP) Subjective: pt states is feeling OK on the detox meds, continues to have high blood sugars O: Vital Signs - 24 hr 12/30/18 12/31/18 12/31/18 14:42 04:49 06:39 Temperature 98.9 F 96 F L 97.7 F Pulse Rate 87 85 95 H Respiratory 18 18 20 Rate Blood Pressure 158/99 179/100 H 163/109 H 12/31/18 12/31/18 12/31/18 08:10 09:34 09:36 Temperature 97.7 F 98.1 F 98.1 F Pulse Rate 95 H 91 H 91 H Respiratory 20 16 16 Rate Blood Pressure 163/109 H 118/70 118/70 Laboratory Tests 12/30/18 12/31/18 12/31/18 18:40 04:51 06:36 WBC RBC Hgb Hct MCV MCH MCHC RDW Plt Count MPV Sodium Potassium Chloride Carbon Dioxide Anion Gap BUN Creatinine Est GFR (CKD-EPI)AfAm Est GFR (CKD-EPI)NonAf POC Glucometer > [phone] Calcium Total Bilirubin AST ALT Alkaline Phosphatase Total Protein Albumin 12/31/18 12/31/18 07:30 07:30 WBC 4.8 RBC 4.01 Hgb 8.5 L Hct 27.5 L MCV 68.8 L MCH 21.3 L MCHC 30.9 L RDW 20.1 H Plt Count 185 MPV 8.8 Sodium 138 Potassium 3.8 Chloride 105 Carbon Dioxide 27 Anion Gap 6 L BUN 7.9 Creatinine 0.9 Est GFR (CKD-EPI)AfAm 113.41 Est GFR (CKD-EPI)NonAf 97.85 POC Glucometer Calcium 8.3 L Total Bilirubin 0.2 AST 12 L ALT 13 Alkaline Phosphatase 89 Total Protein 5.8 L Albumin 2.8 L with anemia, high RDW a/p: continue detox protocols iron, B12, folate for high RDW anemia unclear etiology of anemia- nl GFR, no obvious bleeding SS insulin and basal insulin
[2018-12-31] MEDS ORDERED: MELATONIN 5 MG TABLETS PO PRN (22:00)
[2018-12-31] MEDS: FERROUS SO4 325 MG TABLET (FP) PO SCH (23:15)
[2018-12-31] MEDS: INSULIN (LEVEMIR) 100 UNITS/ML UNITS SQ SCH (23:15)
[2018-12-31] MEDS: THIAMINE HCL 100 MG TABLET (FP) PO SCH (23:21)
[2019-01-01] MEDS: chlordiazePOXIDE 5 MG CAPSULE PO SCH ×3 (05:41→21:31)
[2019-01-01] MEDS: metFORMIN HCL 500 MG TABLET (FP) PO SCH ×2 (06:20→17:00)
[2019-01-01] MEDS: INSULIN SLIDING SCALE (NOVOLOG) 1 VIAL SQ SCH ×4 (07:59→21:32)
[2019-01-01] MEDS ORDERED: METHADONE HCL 5 MG TABLET (FOR DETOX USE ONLY) PO ONE (10:00)
[2019-01-01] MEDS: FERROUS SO4 325 MG TABLET (FP) PO SCH ×2 (10:25→21:34)
[2019-01-01] MEDS: CEPHALEXIN MONOHYDRATE 500 MG CAPSULE (UD) PO SCH ×4 (10:25→21:34)
[2019-01-01] MEDS: LISINOPRIL 10 MG TABLET (FP) PO SCH (10:26)
[2019-01-01] MEDS: HYDROCHLOROTHIAZIDE 25 MG TABLET (FP) PO SCH (10:26)
[2019-01-01] MEDS: PRENATAL VITAMINS W/ FOLIC ACID TABLET (FP) PO SCH (10:26)
[2019-01-01] MEDS: CYANOCOBALAMIN 1,000 MCG TABLET (FP) PO SCH (10:28)
--- NOTE | 2019-01-01 10:47 | PN ---
[facility] CIWA - CIWA Score Nausea/Vomitin-No Nausea/No Vomiting Muscle Tremors: 2 Anxiety: 3 Agitation: 3 Paroxysmal Sweats: 2 Orientation: 0-Oriented Tacttile Disturbances: 0-None Auditory Disturbances: 0-None Visual Disturbances: 0-None Headache: 0-None Present CIWA-Ar Total Score: 10 [facility] COWS - Scale Resting Pulse: 1= [place] 81-100 Sweatin=Flushed/Facial Moisture Restless Observation: 0= Sits Still Pupil Size: 0= Normal to Room Light Bone or Joint Aches: 1= Mild Discomfort Runny Nose/ Eye Tearin= None GI Upset > 30mins: 0= None Tremor Observation of Outstretched Hands: 1= Tremor [place], Not Seen Yawning Observation: 1= 1-2x During Session Anxiety or Irritability: 2=Irritable/Anxious Goose Flesh Skin: 0=Smooth Skin COWS Score: 8 [facility] Progress Note (SOAP) Subjective: sweats shakes interrupted sleep body aches restless anxiety Objective: 01/01/19 10:46 Vital Signs Temperature 97.7 F 01/01/19 09:36 Pulse Rate 86 01/01/19 09:36 Respiratory Rate 16 01/01/19 09:36 Blood Pressure 154/100 01/01/19 09:36 O2 Sat by Pulse Oximetry (%) Laboratory Tests 12/30/18 12/31/18 12/31/18 18:40 04:51 06:36 WBC RBC Hgb Hct MCV MCH MCHC RDW Plt Count MPV Sodium Potassium Chloride Carbon Dioxide Anion Gap BUN Creatinine Est GFR (CKD-EPI)AfAm Est GFR (CKD-EPI)NonAf POC Glucometer > [phone] Random Glucose Calcium Total Bilirubin AST ALT Alkaline Phosphatase Total Protein Albumin RPR Titer 12/31/18 12/31/18 12/31/18 07:30 07:30 07:30 WBC 4.8 RBC 4.01 Hgb 8.5 L Hct 27.5 L MCV 68.8 L MCH 21.3 L MCHC 30.9 L RDW 20.1 H Plt Count 185 MPV 8.8 Sodium 138 Potassium 3.8 Chloride 105 Carbon Dioxide 27 Anion Gap 6 L BUN 7.9 Creatinine 0.9 Est GFR (CKD-EPI)AfAm 113.41 Est GFR (CKD-EPI)NonAf 97.85 POC Glucometer Random Glucose 302 H* Calcium 8.3 L Total Bilirubin 0.2 AST 12 L ALT 13 Alkaline Phosphatase 89 Total Protein 5.8 L Albumin 2.8 L RPR Titer Nonreactive 12/31/18 12/31/18 12/31/18 12:02 16:35 23:14 WBC RBC Hgb Hct MCV MCH MCHC RDW Plt Count MPV Sodium Potassium Chloride Carbon Dioxide Anion Gap BUN Creatinine Est GFR (CKD-EPI)AfAm Est GFR (CKD-EPI)NonAf POC Glucometer [phone] Random Glucose Calcium Total Bilirubin AST ALT Alkaline Phosphatase Total Protein Albumin RPR Titer 01/01/19 05:44 WBC RBC Hgb Hct MCV MCH MCHC RDW Plt Count MPV Sodium Potassium Chloride Carbon Dioxide Anion Gap BUN Creatinine Est GFR (CKD-EPI)AfAm Est GFR (CKD-EPI)NonAf POC Glucometer 299 Random Glucose Calcium Total Bilirubin AST ALT Alkaline Phosphatase Total Protein Albumin RPR Titer aaox3 ambulating no acute distress Assessment: 01/01/19 10:46 withdrawal sx Plan: continue detox increase fluids metformin 500mg bid
[2019-01-01] MEDS: INSULIN (LEVEMIR) 100 UNITS/ML UNITS SQ SCH (22:40)
[2019-01-01] MEDS: THIAMINE HCL 100 MG TABLET (FP) PO SCH (22:40)
[2019-01-01] MEDS: IBUPROFEN 400 MG TABLET (FP) PO PRN (23:21)
[2019-01-02] MEDS: cloNIDine HCL 0.1 MG TABLET PO PRN ×2 (00:12→17:45)
[2019-01-02] MEDS ORDERED: chlordiazePOXIDE HCL 10 MG CAPSULE PO PRN (05:00)
[2019-01-02] MEDS: chlordiazePOXIDE HCL 10 MG CAPSULE PO SCH ×3 (05:46→22:14)
[2019-01-02] MEDS: INSULIN SLIDING SCALE (NOVOLOG) 1 VIAL SQ SCH ×4 (06:29→22:17)
[2019-01-02] MEDS: metFORMIN HCL 500 MG TABLET (FP) PO SCH ×2 (06:29→17:04)
[2019-01-02] MEDS ORDERED: METHADONE HCL 10 MG TABLET (FOR DETOX USE ONLY) PO ONE (10:00)
[2019-01-02 10:05] LABS: URINE APPEARANCE CLEAR; URINE BILIRUBIN NEGATIVE (NEGATIVE); URINE COLOR YELLOW; URINE GLUCOSE (UA) 3+ (NEGATIVE); URINE KETONE NEGATIVE (NEGATIVE); URINE LEUK ESTERASE NEGATIVE (NEGATIVE); URINE NITRITE NEGATIVE (NEGATIVE); URINE PROTEIN NEGATIVE (NEGATIVE); URINE UROBILINOGEN 0.2 mg/dL (0.2-1.0)
[2019-01-02] MEDS: PRENATAL VITAMINS W/ FOLIC ACID TABLET (FP) PO SCH (11:13)
[2019-01-02] MEDS: LISINOPRIL 10 MG TABLET (FP) PO SCH (11:13)
[2019-01-02] MEDS: HYDROCHLOROTHIAZIDE 25 MG TABLET (FP) PO SCH (11:13)
[2019-01-02] MEDS: FERROUS SO4 325 MG TABLET (FP) PO SCH ×2 (11:14→22:14)
[2019-01-02] MEDS: CEPHALEXIN MONOHYDRATE 500 MG CAPSULE (UD) PO SCH ×4 (11:14→22:14)
[2019-01-02] MEDS: CYANOCOBALAMIN 1,000 MCG TABLET (FP) PO SCH (11:16)
--- NOTE | 2019-01-02 11:30 | PN ---
[facility] CIWA - CIWA Score Nausea/Vomitin-No Nausea/No Vomiting Muscle Tremors: 1-None Visible, but [place] Anxiety: 1-Mildly Anxious Agitation: 1-Slight > Activity Paroxysmal Sweats: 2 Orientation: 0-Oriented Tacttile Disturbances: 2-Mild Itch/Numbness/Burn Auditory Disturbances: 0-None Visual Disturbances: 0-None Headache: 0-None Present CIWA-Ar Total Score: 7 S COWS - Scale Resting Pulse: 0= MD 80 or Below Sweatin=Flushed/Facial Moisture Restless Observation: 1= Difficult to Sit Still Pupil Size: 1= Pupils >than Normal Bone or Joint Aches: 2= Severe Diffuse Aches Runny Nose/ Eye Tearin= None GI Upset > 30mins: 0= None Tremor Observation of Outstretched Hands: 1= Tremor [place], Not Seen Yawning Observation: 0= None Anxiety or Irritability: 1=Feels Anxious/Irritable Goose Flesh Skin: 0=Smooth Skin COWS Score: 8 [facility] Progress Note (SOAP) Subjective: interrupted sleep, sweats-mild rt middle digit amputation pain, lbp Objective: 01/02/19 11:26 pt lying in bed in nad , responding well rt middle finger amputation . no rubor , no calor , no d/c Assessment: 01/02/19 11:28 withdrawal sx;s rt middle finger pain at stump site lbp Plan: cont detox increase fluids cont motrin cont keflex lidocaine patch d/c in am f/up with hand after d/c
[2019-01-02] MEDS ORDERED: LIDOCAINE 5% TOPICAL PATCH TP ONE (11:40)
[2019-01-02] MEDS: IBUPROFEN 400 MG TABLET (FP) PO PRN (12:41)
[2019-01-02] MEDS ORDERED: LIDOCAINE PATCH REMOVAL MC SCH ×2 (22:00)
[2019-01-02] MEDS: THIAMINE HCL 100 MG TABLET (FP) PO SCH (22:14)
[2019-01-02] MEDS: INSULIN (LEVEMIR) 100 UNITS/ML UNITS SQ SCH (22:15)
[2019-01-03] MEDS ORDERED: METHADONE HCL 5 MG TABLET (FOR DETOX USE ONLY) PO ONE (06:00)
[2019-01-03] MEDS: chlordiazePOXIDE HCL 10 MG CAPSULE PO SCH (06:07)
[2019-01-03] MEDS: metFORMIN HCL 500 MG TABLET (FP) PO SCH (06:07)
[2019-01-03] MEDS: INSULIN SLIDING SCALE (NOVOLOG) 1 VIAL SQ SCH (06:14)
[2019-01-03 06:26] VITALS: BP 139/79; PULSE 66; TEMP 97.9
[2019-01-03] MEDS ORDERED: LIDOCAINE 5% TOPICAL PATCH TP SCH (10:00)
[2019-01-03] MEDS: HYDROCHLOROTHIAZIDE 25 MG TABLET (FP) PO SCH (10:06)
[2019-01-03] MEDS: PRENATAL VITAMINS W/ FOLIC ACID TABLET (FP) PO SCH (10:06)
[2019-01-03] MEDS: CEPHALEXIN MONOHYDRATE 500 MG CAPSULE (UD) PO SCH (10:06)
[2019-01-03] MEDS: LISINOPRIL 10 MG TABLET (FP) PO SCH (10:07)
[2019-01-03] MEDS: CYANOCOBALAMIN 1,000 MCG TABLET (FP) PO SCH (10:07)
[2019-01-03] MEDS: FERROUS SO4 325 MG TABLET (FP) PO SCH (10:10)
--- NOTE | 2019-01-03 16:33 | DS ---
[facility] Detox Discharge Summary Admission Date: 12/31/18 Discharge Date: 01/03/19 - History Additional Comments: Pt was discharged s/p completion of detox Pt had left unit prior to arrival of this provider to unit. - Physical Exam Results Vital Signs: Vital Signs Temperature 97.9 F 01/03/19 06:00 Pulse Rate 66 01/03/19 06:00 Respiratory Rate 18 01/03/19 06:00 Blood Pressure 139/79 01/03/19 06:00 O2 Sat by Pulse Oximetry (%) - Medication Discharge Medications: Ambulatory Orders Cephalexin [Keflex] 500 mg PO QID 5 Days #20 capsule 01/02/19 Hydrochlorothiazide 1 mg PO DAILY #30 tablet 01/02/19 Ibuprofen [Motrin -] 400 mg PO Q6H PRN #40 tablet 01/02/19 Insulin (Levemir) [Levemir Vial] 20 units SQ HS #1 units 01/02/19 Lisinopril 20 mg PO DAILY #30 tablet 01/02/19 metFORMIN HCL [Glucophage -] 500 mg PO DAILY #30 tablet 01/02/19 - AMA Did Patient Leave Against Medical Advice: No
== END 2019-01-03 10:15 | disposition home or self-care (01) | DRG 773 ==
LOC: YASAS 13:12 → Y6N 18:35 → UNDOADMIN 18:35 → Y6N 12-31 02:47
PROVIDERS: ADMIT Surgery; ATTEND Surgery
PROC: HZ2ZZZZ Detoxification Services for Substance Abuse Treatment (ICD-10-PCS; principal; 2018-12-31)
DX: F11.23 Opioid dependence with withdrawal (principal); F13.10 Sedative, hypnotic or anxiolytic abuse, uncomplicated; F17.210 Nicotine dependence, cigarettes, uncomplicated; E11.65 Type 2 diabetes mellitus with hyperglycemia; I10 Essential (primary) hypertension; D64.9 Anemia, unspecified; M54.5 Low back pain; M79.644 Pain in right finger(s); K21.9 Gastro-esophageal reflux disease without esophagitis; L03.115 Cellulitis of right lower limb; R60.9 Edema, unspecified; Z89.021 Acquired absence of right finger(s); Z89.412 Acquired absence of left great toe; Z79.4 Long term (current) use of insulin; Z91.14 Patient's other noncompliance with medication regimen
CPT/HCPCS: 36415; 80053; 81003; 82962; 85027; 86593; J0735

== ENCOUNTER 2018-12-30 19:36 | Emergency (ER) | payer OTHER ==
[2018-12-30 20:08] VITALS: BP 147/93; PULSE 82; TEMP 98.8; BMI 26.9
--- NOTE | 2018-12-30 20:11 | PDOC ---
History of Present Illness - General Chief Complaint: Blood Sugar Problem Stated Complaint: HIGH BLOOD SUGAR Time Seen by Provider: 12/30/18 20:03 History Source: Patient Exam Limitations: No Limitations - History of Present Illness Initial Comments: 12/30/18 20:14 53 year old male with PMH HTN, DM, GERD, chronic back pain, heroine dependence, benzo dependence, depression, insomnia sent to ED from [facility] for hyperglycemia of 567. Pt reported no complaints other than feeling dehydrated. Past History - Past Medical History Allergies/Adverse Reactions: Allergies Allergy/AdvReac Type Severity Reaction Status Date / Time No Known Allergies Allergy Verified 12/30/18 14:44 Home Medications: Ambulatory Orders Hydrochlorothiazide 1 mg PO DAILY #30 tablet 11/05/17 metFORMIN HCL [Glucophage -] 500 mg PO DAILY #30 tablet 11/05/17 Cephalexin [Keflex] 500 mg PO QID 5 Days #20 capsule 12/30/18 Lisinopril 20 mg PO DAILY 12/30/18 Asthma: No Cancer: No Cardiac Disorders: No CVA: No COPD: No CHF: No Dementia: No Diabetes: Yes GI Disorders: Yes (GERD, hx of GI bleed 2016) Disorders: No HTN: Yes Hypercholesterolemia: No Kidney Stones: No Liver Disease: No Seizures: No Thyroid Disease: No - Surgical History Abdominal Surgery: No Appendectomy: No Cardiac Surgery: No Cholecystectomy: No Lung Surgery: No Neurologic Surgery: No Orthopedic Surgery: No - Reproductive History Testicular Surgery: No - Suicide/Smoking/Psychosocial Hx Smoking History: Current some day smoker Have you smoked in the past 12 months: Yes Number of Cigarettes Smoked Daily: 10 Information on smoking cessation initiated: No 'Breaking Loose' booklet given: 11/01/17 Hx Alcohol Use: Yes Drug/Substance Use Hx: Yes (Benzodiazepines) Substance Use Type: Heroin Hx Substance Use Treatment: No Review of Systems - Review of Systems Able to Perform ROS?: Yes Comments:: 12/30/18 20:15 General: denied fever, chills, generalized weakness. HEENT: denied sore throat, rhinorrhea, ear pain. Heart: denied chest pain, palpitations, syncope, diaphoresis. Respiratory: denied shortness of breath, cough, sputum production, hemoptysis. Abdomen: denied abdominal pain, nausea, vomiting, diarrhea, constipation, blood in stool. : denied dysuria, increased urinary frequency, hematuria, urinary incontinence , flank pain. Back: denied back pain. Musculoskeletal: denied joint pain, muscle pain, joint swelling. Neurological: denied headache, dizziness, numbness, tingling, weakness. Skin: denied rash, laceration, abrasion. *Physical Exam - Vital Signs Last Vital Signs Temp Pulse Resp BP Pulse Ox 98.8 F 82 20 147/93 99 12/30/18 19:36 12/30/18 19:36 12/30/18 19:36 12/30/18 19:36 12/30/18 19:36 - Physical Exam Comments: 12/30/18 20:18 Constitutional: Well-nourished, Well-developed, appearing stated age. HEENT: head is normocephalic, atraumatic. EOMI. PERRLA. Neck: supple. Full ROM. Heart: regular rhythm. no murmurs, rubs or gallops. Lungs: clear to auscultation bilaterally. no crackles, rhonchi or wheezing. no stridor. Abdomen: soft, nontender. normal bowel sounds. no rebound, guarding, masses. Extremities: peripheral pulses intact. no lower extremity edema. Neurological: CN 2-12 grossly intact. moves all four extremities. Psych: awake, alert, oriented x3. follows commands. answers questions appropriately. Skin: amputation of right middle finger at the PIP. erythema to right lower leg. ED Treatment Course - LABORATORY CBC & Chemistry Diagram: 12/30/18 20:22 12/30/18 20:22 - ADDITIONAL ORDERS Additional order review: Laboratory Results 12/30/18 19:58 POC Glucometer 567 12/30/18 19:58 POC Glucometer 567 Medical Decision Making - Medical Decision Making 12/30/18 20:18 53 year old male with above PMH sent to ED from [facility] for hyperglycemia. Pt is noncompliant with Metformin. Possible cellulitis to right lower leg. Pt is diabetic, will cover. Pt was not yet admitted to [facility] for Detox. Initial Vital Signs Temp Pulse Resp BP Pulse Ox 98.8 F 82 20 147/93 99 12/30/18 19:36 12/30/18 19:36 12/30/18 19:36 12/30/18 19:36 12/30/18 19:36 Afebrile. No tachycardia. No tahcypnea. Mild hypertension. No hypoxia on room air. Labs ordered: CBC, CMP, acetone, VBG, UA/UC Imaging ordered: CXR Medications ordered: normal saline bolus 1000 cc, Keflex 500 mg PO once, Metformin 500 mg PO once Laboratory Last Values POC Glucometer 567 UNITS (80-120) 12/30/18 19:58 12/30/18 20:42 pH - 7.43 CXR my view: sharp costophrenic angles. no infiltrate. no pulmonary vascular congestion. -Pending official report. 12/30/18 20:51 CBC WBC 4.7 K/mm3 (4.0-10.0) 12/30/18 20:22 RBC 3.96 M/mm3 (4.00-5.60) L 12/30/18 20:22 Hgb 8.6 GM/dL (11.7-16.9) L 12/30/18 20:22 Hct 27.8 % (35.4-49) L 12/30/18 20:22 MCV 70.2 fl (80-96) L 12/30/18 20:22 MCH 21.7 pg (25.7-33.7) L D 12/30/18 20:22 MCHC 30.9 g/dl (32.0-35.9) L 12/30/18 20:22 RDW 19.7 % (11.9-15.9) H 12/30/18 20:22 Plt Count 175 K/MM3 (134-434) 12/30/18 20:22 MPV 8.2 fl (7.5-11.1) 12/30/18 20:22 Absolute Neuts (auto) 3.4 K/mm3 (1.5-8.0) 12/30/18 20:22 Neutrophils % 73.0 % (42.8-82.8) 12/30/18 20:22 Lymphocytes % 18.8 % (8-40) 12/30/18 20:22 Monocytes % 7.1 % (3.8-10.2) 12/30/18 20:22 Eosinophils % 0.6 % (0-4.5) 12/30/18 20:22 Basophils % 0.5 % (0-2.0) 12/30/18 20:22 Nucleated RBC % 0 % (0-0) 12/30/18 20:22 No leukocytosis. Microcytic anemia, at baseline. 12/30/18 21:06 CMP Sodium 135 mmol/L (136-145) L 12/30/18 20:22 Potassium 4.0 mmol/L (3.5-5.1) 12/30/18 20:22 Chloride 100 mmol/L (98-107) 12/30/18 20:22 Carbon Dioxide 28 mmol/L (21-32) 12/30/18 20:22 Anion Gap 7 MMOL/L (8-16) L 12/30/18 20:22 BUN 11.9 mg/dL (7-18) 12/30/18 20:22 Creatinine 1.1 mg/dL (0.55-1.3) 12/30/18 20:22 Est GFR (CKD-EPI)AfAm 88.98 12/30/18 20:22 Est GFR (CKD-EPI)NonAf 76.77 12/30/18 20:22 POC Glucometer 567 UNITS (80-120) 12/30/18 19:58 Random Glucose 603 mg/dL (74-106) H* 12/30/18 20:22 Calcium 8.3 mg/dL (8.5-10.1) L 12/30/18 20:22 Total Bilirubin 0.2 mg/dL (0.2-1) 12/30/18 20:22 AST 11 U/L (15-37) L 12/30/18 20:22 ALT 11 U/L (13-61) L 12/30/18 20:22 Alkaline Phosphatase 94 U/L (45-117) 12/30/18 20:22 Total Protein 6.1 g/dl (6.4-8.2) L 12/30/18 20:22 Albumin 2.9 g/dl (3.4-5.0) L 12/30/18 20:22 No electrolyte abnormalities. No BREANNA. Hyperglycemia. No transaminitis. No anion gap. Pt likely poorly controlled DM. No DKA. 12/30/18 21:44 Pt finished normal saline bolus. Medications ordered: normal saline 1000 cc bolus 12/30/18 22:00 Pt signed out to Dr. Davila. -Pending repeat BGM after second normal saline liter finishes -Pending glycemic control -Pending UA -Pending Acetone -Pending disposition *DC/Admit/Observation/Transfer Diagnosis at time of Disposition: Anemia, Kidney dysfunction, Hyperglycemia, Cellulitis - Discharge Dispostion Condition at time of disposition: Stable - Prescriptions Prescriptions: Cephalexin [Keflex] 500 mg PO QID 5 Days #20 capsule - Referrals Referrals: Devyn Galvin [Primary Care Provider] - - Patient Instructions Printed Discharge Instructions: DI for Cellulitis -- Adult, DI for Iron Deficiency Anemia-Adult, DI for Hyperglycemia -- Adult Additional Instructions: You were seen today for high blood sugar. You may have a cellulitis, an infection of the skin. I have sent an antibiotic to your pharmacy, take as advised on label. You received the first dose in the Emergency Department. You were not in Diabetic Ketoacidosis. Your blood sugar reduced with fluid hydration. Your chest X-ray showed no pneumonia. Your urine analysis was normal, there was no UTI. Follow up with your primary care doctor within 3 days. Your care is not complete until you follow up. Return to the Emergency Department for chest pain, shortness of breath, fever, lightheadedness like you may pass out, abdominal pain, or any other new, worsening or concerning symptoms. - Post Discharge Activity
[2018-12-30 20:36] LABS: VENOUS PC02 41.4 mmHg (41-51); VENOUS PH 7.43 (7.31-7.41)
[2018-12-30 20:37] LABS: BASO % 0.5 % (0-2.0); EOS % 0.6 % (0-4.5); HEMATOCRIT 27.8 % (35.4-49); HEMOGLOBIN 8.6 GM/dL (11.7-16.9); LYMPH % 18.8 % (8-40); MCH 21.7 pg (25.7-33.7); MCHC 30.9 g/dl (32.0-35.9); MEAN CELL VOLUME 70.2 fl (80-96); MEAN PLT VOLUME 8.2 fl (7.5-11.1); MONO % 7.1 % (3.8-10.2); PLATELET COUNT 175 K/MM3 (134-434); RBC 3.96 M/mm3 (4.00-5.60); RDW 19.7 % (11.9-15.9); VENOUS PO2 24.4 mmHg (30-40); WHITE BLOOD COUNT 4.7 K/mm3 (4.0-10.0)
[2018-12-30] MEDS ORDERED: SODIUM CHLORIDE 1,000 ML IV STA ×2 (20:39→21:02)
[2018-12-30 21:02] LABS: ALBUMIN 2.9 g/dl (3.4-5.0); ALK PHOS 94 U/L (45-117); ANION GAP 7 MMOL/L (8-16); BILIRUBIN,TOTAL 0.2 mg/dL (0.2-1); BLOOD UREA NITROGEN 11.9 mg/dL (7-18); CALCIUM 8.3 mg/dL (8.5-10.1); CHLORIDE 100 mmol/L (98-107); CO2 28 mmol/L (21-32); CREATININE 1.1 mg/dL (0.55-1.3); SGOT/AST 11 U/L (15-37); SGPT/ALT 11 U/L (13-61); SODIUM 135 mmol/L (136-145); TOT PROT 6.1 g/dl (6.4-8.2)
[2018-12-30 21:04] LABS: GLUCOSE,RANDOM 603 mg/dL (74-106)
[2018-12-30 21:21] LABS: PH,URINE 7.5 (5.0-8.0); URINE APPEARANCE CLEAR; URINE BILIRUBIN NEGATIVE (NEGATIVE); URINE COLOR YELLOW; URINE GLUCOSE (UA) 2+ (NEGATIVE); URINE KETONE NEGATIVE (NEGATIVE); URINE LEUK ESTERASE NEGATIVE (NEGATIVE); URINE NITRITE NEGATIVE (NEGATIVE); URINE PROTEIN NEGATIVE (NEGATIVE); URINE UROBILINOGEN 0.2 mg/dL (0.2-1.0)
[2018-12-30] MEDS ORDERED: CEPHALEXIN MONOHYDRATE 500 MG CAPSULE (UD) PO ONE (21:34)
[2018-12-30] MEDS ORDERED: metFORMIN HCL 500 MG TABLET (FP) PO ONE (21:36)
[2018-12-30] MEDS ORDERED: metFORMIN HCL 500 MG TABLET (FP) ONE (21:40)
[2018-12-30] MEDS ORDERED: CEPHALEXIN MONOHYDRATE 500 MG CAPSULE (UD) ONE (21:40)
[2018-12-30 22:09] LABS: ACETONE SERUM NEGATIVE (NEGATIVE)
[2018-12-30] MEDS ORDERED: SODIUM CHLORIDE 0.9% 500 ML INFUS.BAG IV ONE ×2 (22:24→23:36)
--- NOTE | 2018-12-30 22:25 | PDOC ---
*Physical Exam - Vital Signs Last Vital Signs Temp Pulse Resp BP Pulse Ox 98.8 F 82 20 147/93 99 12/30/18 19:36 12/30/18 19:36 12/30/18 19:36 12/30/18 19:36 12/30/18 19:36 - Physical Exam General Appearance: Yes: Nourished HEENT: positive: Normal Voice, Hearing Grossly Normal Neck: positive: Trachea midline, Supple Respiratory/Chest: positive: Lungs Clear, Normal Breath Sounds. negative: Labored Respiration, Rapid RR Cardiovascular: positive: S1, S2, Edema (B/L LE, R > L), Systolic Murmur Gastrointestinal/Abdominal: positive: Normal Bowel Sounds. negative: Tender Extremity: positive: Normal Capillary Refill, Erythema (RLE: Anterior [place]) Integumentary: positive: Normal Color, Dry, Warm Neurologic: positive: computer tech II-XII NML intact, Fully Oriented, Alert ED Treatment Course - LABORATORY CBC & Chemistry Diagram: 12/30/18 20:22 12/30/18 20:22 - ADDITIONAL ORDERS Additional order review: Laboratory Results 12/30/18 12/30/18 12/30/18 20:37 20:22 20:22 VBG pH 7.43 H POC VBG pCO2 41.4 POC VBG pO2 24.4 L VBG HCO3 27.2 VBG O2 Sat ([place]) 41.9 L VBG Base Excess 3.2 H Sodium 135 L Potassium 4.0 Chloride 100 Carbon Dioxide 28 Anion Gap 7 L BUN 11.9 Creatinine 1.1 Est GFR (CKD-EPI)AfAm 88.98 Est GFR (CKD-EPI)NonAf 76.77 POC Glucometer Random Glucose 603 H* Calcium 8.3 L Total Bilirubin 0.2 AST 11 L ALT 11 L Alkaline Phosphatase 94 Total Protein 6.1 L Albumin 2.9 L Urine Color Yellow Urine Appearance Clear Urine pH 7.5 D Ur Specific [place] 1.028 Urine Protein Negative Urine Glucose (UA) 2+ H Urine Ketones Negative Urine Blood Negative Urine Nitrite Negative Urine Bilirubin Negative Urine Urobilinogen 0.2 Ur Leukocyte Esterase Negative Acetone, Qual Negative 12/30/18 19:58 VBG pH POC VBG pCO2 POC VBG pO2 VBG HCO3 VBG O2 Sat ([place]) VBG Base Excess Sodium Potassium Chloride Carbon Dioxide Anion Gap BUN Creatinine Est GFR (CKD-EPI)AfAm Est GFR (CKD-EPI)NonAf POC Glucometer 567 Random Glucose Calcium Total Bilirubin AST ALT Alkaline Phosphatase Total Protein Albumin Urine Color Urine Appearance Urine pH Ur Specific [place] Urine Protein Urine Glucose (UA) Urine Ketones Urine Blood Urine Nitrite Urine Bilirubin Urine Urobilinogen Ur Leukocyte Esterase Acetone, Qual 12/30/18 12/30/18 20:22 19:58 RBC 3.96 L MCV 70.2 L MCHC 30.9 L RDW 19.7 H MPV 8.2 Neutrophils % 73.0 Lymphocytes % 18.8 Monocytes % 7.1 Eosinophils % 0.6 Basophils % 0.5 POC Glucometer 567 - Medications Given in the ED: ED Medications Discontinued Medications Generic Name Dose Route Start Last Admin Trade Name Freq PRN Reason Stop Dose Admin Cephalexin HCl 500 mg 12/30/18 21:34 12/30/18 21:43 Keflex - PO 12/30/18 21:35 500 mg ONCE ONE Administration Sodium Chloride 1,000 mls @ 1,000 mls/hr 12/30/18 20:39 12/30/18 20:44 Normal Saline - IV 12/30/18 21:38 1,000 mls/hr ASDIR STA Administration Sodium Chloride 1,000 mls @ 1,000 mls/hr 12/30/18 21:02 12/30/18 21:37 Normal Saline - IV 12/30/18 22:01 1,000 mls/hr ASDIR STA Administration Metformin HCl 500 mg 12/30/18 21:36 12/30/18 21:43 Glucophage - PO 12/30/18 21:37 500 mg ONCE ONE Administration Medical Decision Making - Medical Decision Making 12/30/18 22:[address] Sánchez (Resident) under the care of Dr. Barrett @ 1255 53 year old male with a PMH of poorly controlled NIDDM presents from [facility] for hyperglycemia. Hemodynamically stable. Keflex for presumptive RLE cellulitis. BS No anion gap Acetone negative S/p 1 L IV NS, Keflex (500 mg PO), Metformin (500 mg PO) Will give additional 2 L IV hydration and pending downward trend of BS will discharge to [facility] 12/30/18 22:38 Patient reassessed @ bedside Resting comfortably, counseled on plan of care 2nd L IV NS hanging 12/30/18 22:39 12/30/18 23:35 Repeat FS 375 Will give additional 1 L 12/31/18 00:45 Repeat FS 326 *DC/Admit/Observation/Transfer Diagnosis at time of Disposition: Anemia, Kidney dysfunction, Hyperglycemia, Cellulitis - Discharge Dispostion Disposition: TRANSFER ACUTE CARE/OTHER HOSP Condition at time of disposition: Stable - Prescriptions Prescriptions: Cephalexin [Keflex] 500 mg PO QID 5 Days #20 capsule - Referrals Referrals: Devyn Galvin [Primary Care Provider] - - Patient Instructions Printed Discharge Instructions: DI for Cellulitis -- Adult, DI for Iron Deficiency Anemia-Adult, DI for Hyperglycemia -- Adult Additional Instructions: You were seen today for high blood sugar. You may have a cellulitis, an infection of the skin. I have sent an antibiotic to [facility], they will administer you the medication as advised. You received the first dose in the Emergency Department. You were not in Diabetic Ketoacidosis. Your blood sugar reduced with fluid hydration. Your chest X-ray showed no pneumonia. Your urine analysis was normal, there was no UTI. Follow up with your primary care doctor within 3 days. Your care is not complete until you follow up. Return to the Emergency Department for chest pain, shortness of breath, fever, lightheadedness like you may pass out, abdominal pain, or any other new, worsening or concerning symptoms. - Post Discharge Activity
--- NOTE | 2018-12-30 23:38 | PDOC ---
Documentation entered by Esperanza Diaz SCRIBE, acting as scribe for Trinidad Barrett MD. Trinidad Barrett MD: This documentation has been prepared by the scribe, Esperanza Diaz SCRIBE, under my direction and personally reviewed by me in its entirety. I confirm that the documentation accurately reflects all work, treatment, procedures, and medical decision making performed by me. Attending Attestation - Resident Resident Name: Harriet Sánchez - ED Attending Attestation I have performed the following: I have examined & evaluated the patient, The case was reviewed & discussed with the resident, I agree w/resident's findings & plan, Exceptions are as noted - HPI HPI: 12/30/18 20:14 53-year-old male was sent from [facility] detox for hyperglycemia. He has a known history of type 2 diabetes and is also supposed to taking metformin 12/30/18 20:29 The patient is a 53-year-old male with a past medical history significant for GERD, HTN, DM type 2, chronic back pain, anxiety, and depression presents to the emergency department from [facility] for elevated blood sugar to 567. Allergies: NKDA Social history: Heroin use since age 27, 5 bags/day last use 12/29/2018. Denies IV drug use. Benzodiazepine 5mg/day. 1 pack a day tobacco use. Denies the use of alcohol. The patient is the father of 2, and currently unemployed. PCP: In the [facility]. - Physicial Exam PE: 12/30/18 20:29 GENERAL: +slender and somelent, but conversant. Well developed, well nourished. No acute distress. HET: Eyes: reactive to light, significant puffy bags. Sclera are non-icteric. Head: Normocephalic, atraumatic. Moist mucous membranes. Oropharynx is clear. NECK: Supple. Full ROM. No JVD. No bruits. CARDIOVASCULAR: Regular rate and rhythm. No murmurs, rubs, or gallops. PULMONARY: No evidence of respiratory distress. Lungs clear to auscultation bilaterally. No wheezing, rales or rhonchi. ABDOMINAL: Soft. Non-tender. Non-distended. MUSCULOSKELETAL Normal range of motion at all joints. No bony deformities or tenderness. No CVA tenderness. EXTREMITIES: +lower extremity edema, right more than left. Mild erythema. Left toenail missing on the big toe. Right arm well healed surgical incision inner surface of the right arm. Right hand: missing 3rd PIP, partial amputation ( patient is unsure why?) No cyanosis. No clubbing. No calf tenderness. SKIN: Warm and dry. Normal capillary refill. No rashes. No jaundice. NEUROLOGICAL: Alert, awake, appropriate. Cranial nerves 2-12 intact. Gait is normal without ataxia. PSYCHIATRIC: Cooperative. Good eye contact. - Medical Decision Making 12/30/18 21:09 [id number] stable vital signs,normotensive ,afebrile chronic anemia when compared to prior cbc normal ph and normal anion gap, suspect hyperosmolar hyperglycemia nonketotic syndrome 12/30/18 21:49 12/30/18 22:18 acetone is negative he recived IVF NS 12/30/18 23:30 repeat [id number] 12/30/18 23:38 12/31/18 00:48 pt discharged from Ed and will be sent back to his detox program at [facility]
[2018-12-30 23:45] LABS: ANISOCYTOSIS 2+; MACROCYTOSIS 1+; OVALOCYTE 1+; PLATELET ESTIMATE NORMAL; TEAR DROP CELLS 1+
[2018-12-31] MEDS ORDERED: CEPHALEXIN MONOHYDRATE 500 MG CAPSULE (UD) PO SCH (10:00)
== END 2018-12-31 02:06 | disposition short-term general hospital (02) ==
LOC: JER 19:36
PROC: 3E0337Z Introduction of Electrolytic and Water Balance Substance into Peripheral Vein, Percutaneous Approach (ICD-10-PCS; principal; 2018-12-30)
DX: E11.65 Type 2 diabetes mellitus with hyperglycemia (principal); Z79.84 Long term (current) use of oral hypoglycemic drugs; L03.115 Cellulitis of right lower limb; D50.9 Iron deficiency anemia, unspecified; I10 Essential (primary) hypertension; K21.9 Gastro-esophageal reflux disease without esophagitis; F11.20 Opioid dependence, uncomplicated; F13.20 Sedative, hypnotic or anxiolytic dependence, uncomplicated; F32.9 Major depressive disorder, single episode, unspecified; G47.00 Insomnia, unspecified
CPT/HCPCS: 36415; 71045-TC-FY; 80053; 81003; 82009; 82803; 82962; 85025; 87086; 96360; 96361; 99283-25; J7030

== ENCOUNTER 2019-02-11 13:37 | Inpatient (IN) | payer OTHER | END 2019-02-16 09:15 | disposition home or self-care (01) | LOC: YASAS 13:37 → Y3N 19:13 ==